=== PATIENT | female | born 1985 | race Caucasian/White ===

== ENCOUNTER 2019-05-30 19:35 | Emergency (ER) | payer MEDICAID, OTHER ==
[~2019-05-30] VITALS: Ht 175.3 cm; Wt 63.5 kg
[2019-05-30] MEDS ORDERED: BENZONATATE 100 MG CAPSULE PO ONE (20:15)
[2019-05-30] MEDS ORDERED: HYDROCODONE/APAP 5-325MG TABLET PO ONE (20:15)
[2019-05-30] MEDS ORDERED: SULFAMETH/TRIMETH 800/160 MG TABLET PO ONE (20:15)
[2019-05-30] MEDS ORDERED: SULFAMETH/TRIMETH 800/160 MG TABLET ONE (20:21)
[2019-05-30] MEDS ORDERED: HYDROCODONE/APAP 5-325MG TABLET ONE (20:21)
[2019-05-30] MEDS ORDERED: BENZONATATE 100 MG CAPSULE ONE (20:21)
--- NOTE | 2019-05-30 21:28 | NUR ---
Patient discharged to home in stable conditon. Written and verbal after care instructions given. Patient verbalizes understanding of instructions. walked out of ER with no distress noted.
[2019-05-30 21:29] VITALS: BP 120/88
== END 2019-05-30 21:30 | disposition home or self-care (01) ==
LOC: ER 19:37
DX: J40 Bronchitis, not specified as acute or chronic (principal); L02.411 Cutaneous abscess of right axilla; G43.909 Migraine, unspecified, not intractable, without status migrainosus; F17.210 Nicotine dependence, cigarettes, uncomplicated
CPT/HCPCS: 71045; A4663

== ENCOUNTER 2019-08-10 10:50 | Emergency (ER) | payer OTHER ==
[~2019-08-10] VITALS: Ht 170.2 cm; Wt 68.0 kg
--- NOTE | 2019-08-10 11:09 | NUR ---
ERMD AT BEDSIDE FOR HX AND PHYSICAL PT RA NAD REVEALED R AXILLARY ABSCESS AND ERYTHEMA TO THE SITE OPEN POST I&D WOUND X2 LESS THAN 1CM
[2019-08-10] MEDS ORDERED: HYDROCODONE/APAP 5-325MG TABLET ONE (11:22)
[2019-08-10] MEDS ORDERED: LIDOCAINE HCL 1% 20 ML VIAL IJ ONE (11:30)
[2019-08-10] MEDS ORDERED: HYDROCODONE/APAP 5-325MG TABLET PO ONE (11:30)
--- NOTE | 2019-08-10 11:52 | NUR ---
PT ABLE TO TOLERATE PROCEDURE RA ANA
--- NOTE | 2019-08-10 12:16 | NUR ---
Patient discharged to home in stable condition. Written and verbal after care instructions given. Patient verbalizes understanding of instructions. Stressed follow up or return to ER for worsening s/s. AMBULATORY W/ STABLE GAIT ALL BELONGINGS W/ PT
[2019-08-10 12:17] VITALS: BP 145/72
== END 2019-08-10 12:18 | disposition home or self-care (01) ==
LOC: ER 10:50
DX: L02.411 Cutaneous abscess of right axilla (principal); Z86.14 Personal history of Methicillin resistant Staphylococcus aureus infection; L03.111 Cellulitis of right axilla
CPT/HCPCS: 10060; 99283; J3490